=== PATIENT | male | born 2000 | race Caucasian/White ===

== ENCOUNTER 2022-05-05 02:07 | Emergency (ER) | payer SELFPAY ==
[~2022-05-05] VITALS: Ht 190.5 cm; Wt 85.0 kg
[2022-05-05] MEDS ORDERED: TETanus/Pertussis (Acell)/Diphther VAC/PF (Tdap-Adult) 0.5ml syringe IMVAC ONE (02:25)
[2022-05-05] MEDS ORDERED: amox tr/potassium clavulanate 875/125mg TAB PO ONE (07:20)
[2022-05-05] MEDS ORDERED: LIDOcaine 1% w/EPI 1:100,000 30ml vial (MDV) IJ ONE (07:25)
[2022-05-05] MEDS ORDERED: AMOX-117 PO ×2 (08:15→08:22)
--- NOTE | 2022-05-05 08:51 | NUR ---
Dr. Galvan gave the [place] with epi
[2022-05-05 09:04] VITALS: BP 110/74
== END 2022-05-05 09:06 | disposition home or self-care (01) ==
LOC: ER 02:09
DX: S61.211A Laceration without foreign body of left index finger without damage to nail, initial encounter (principal); Z72.89 Other problems related to lifestyle; Z79.2 Long term (current) use of antibiotics; W54.0XXA Bitten by dog, initial encounter; Y93.89 Activity, other specified; Y92.89 Other specified places as the place of occurrence of the external cause; Y99.8 Other external cause status
CPT/HCPCS: 12001; 73140; 90471; 90715; 99283; J3490; J7030; A6449